=== PATIENT | female | born 1980 | race African-American/Black ===

== ENCOUNTER → 2020-12-29 17:50 | Outpatient (CLI) | payer BC, SELFPAY ==
--- NOTE | ~2020-12-29 | MM_ITS ---
EXAMINATION: MM screening cheryl BI w isabella HISTORY: Screening TECHNIQUE: Craniocaudal and mediolateral oblique 3-D tomosynthesis images were obtained and synthetic 2-D images were generated. CAD analysis was submitted and interpreted. COMPARISON: No prior mammogram is available for comparison at this institution. BREAST PARENCHYMAL COMPOSITION: The breasts are heterogeneously dense, which may obscure small masses . FINDINGS: There is no evidence of suspicious mass, calcification, or architectural distortion to sugg est malignancy in either breast. There has been no suspicious interval change. IMPRESSION: 1. No mammographic evidence of malignancy. 2. Recommend routine screening mammography in one year. BI-RADS Category 1: Negative Reviewed, dictated and finalized at location A. T MAN
== END ==
PROVIDERS: Visit Provider Nurse Practitioner
DX: Z12.31 Encounter for screening mammogram for malignant neoplasm of breast (principal)
CPT/HCPCS: 77063; 77067

== ENCOUNTER → 2022-12-04 12:47 | Outpatient (CLI) | payer BC, SELFPAY ==
--- NOTE | ~2022-12-04 | US_ITS ---
EXAMINATION: US pelvic complete DATE: 12/04/2022 13:06 INDICATION: Hypertrophy of uterus. TECHNIQUE: Multiple transabdominal sonographic images of the pelvis were obtained. COMPARISON: None. FINDINGS: The uterus measures 8.7 x 6.1 x 6.7 cm. There is no free fluid in the pelvis. The endometrial complex measures 8 mm in thickness. The right ovary measures 2.3 x 1.8 x 2.0 cm. The left ovary measures 2.9 x 1.6 x 2.0 cm. IMPRESSION: 1. Normal pelvis. Reviewed, dictated and finalized at location E. LEATHER SORTER IMPRESSION: 1. Normal pelvis.
--- NOTE | ~2022-12-04 | MM_ITS ---
EXAMINATION: MM screening cheryl BI w isabella HISTORY: Screening mammogram TECHNIQUE: Craniocaudal and mediolateral oblique 3-D tomosynthesis images were obtained and synthetic 2-D images were generated. CAD analysis was submitted and interpreted. COMPARISON: bilateral screening mammogram BREAST PARENCHYMAL COMPOSITION: There are scattered areas of fibroglandular density. FINDINGS: There is no evidence of suspicious mass, calcification, or architectural distortion to sugg est malignancy in either breast. There has been no suspicious interval change. IMPRESSION: 1. No mammographic evidence of malignancy. 2. Recommend routine screening mammography in one year. BI-RADS Category 1: Negative................... Reviewed, dictated and finalized at location A. RHOUSE ENGINEER
== END ==
PROVIDERS: PCP Nurse Practitioner; Visit Provider Nurse Practitioner
DX: Z12.31 Encounter for screening mammogram for malignant neoplasm of breast (principal); N85.2 Hypertrophy of uterus
CPT/HCPCS: 76856; 77063; 77067

== ENCOUNTER 2024-01-12 10:12 | Outpatient (CLI) | payer BC, SELFPAY ==
--- NOTE | ~2024-01-12 | US_ITS ---
EXAMINATION: US pelvic complete DATE: 01/12/2024 10:30 INDICATION: pelvic pain TECHNIQUE: Multiple transabdominal and endovaginal sonographic images of the pelvis were obtained. COMPARISON: 12/04/2022. FINDINGS: Uterus: 10.8 x 5.9 x 6.9 cm. 4.0 cm hyperechoic focus in the anterior uterine body. Endometrial compl ex measures 5 mm. Right Ovary: 2.6 x 2.6 x 2.1 cm. Vascular flow is present. No adnexal mass Left Ovary: 4.7 x 3.3 x 5.1 cm. Vascular flow is present. Stable, round 2.2 cm simple cyst. Adjacent, elongated 2.5 x 0.8 cm cyst/dominant follicle, also unchanged. There is no free fluid in the pelvis. IMPRESSION: 4.0 cm intramural fibroid. Reviewed, dictated and finalized at location K. ERCIAL MANAGEMENT ACCOUNTANT IMPRESSION: 4.0 cm intramural fibroid.
== END 2024-01-12 10:13 ==
LOC: MICIMG 10:13
PROVIDERS: PCP Nurse Practitioner; Visit Provider Nurse Practitioner
DX: D25.1 Intramural leiomyoma of uterus (principal)
CPT/HCPCS: 76856

== ENCOUNTER 2024-04-23 15:45 | Outpatient (CLI) | payer BC, SELFPAY ==
--- NOTE | ~2024-04-23 | MM_ITS ---
EXAMINATION: MM screening cheryl BI w isabella HISTORY: Screening TECHNIQUE: Craniocaudal and mediolateral oblique 3-D tomosynthesis images were obtained and synthetic 2-D images were generated. CAD analysis was submitted and interpreted. COMPARISON: Comparison to multiple prior studies sequentially, with oldest reviewed study dated 03/2011. BREAST PARENCHYMAL COMPOSITION: Not dense: There are scattered areas of fibroglandular density. FINDINGS: There is no evidence of suspicious mass, calcification, or architectural distortion to sugg est malignancy in either breast. There has been no suspicious interval change. IMPRESSION: 1. No mammographic evidence of malignancy. 2. Recommend routine screening mammography in one year. BI-RADS Category 1: Negative Reviewed, dictated and finalized at location B.
== END 2024-04-23 15:46 ==
LOC: MICIMG 15:47
PROVIDERS: PCP Nurse Practitioner; Visit Provider Nurse Practitioner
DX: Z12.31 Encounter for screening mammogram for malignant neoplasm of breast (principal)
CPT/HCPCS: 77063; 77067

== ENCOUNTER 2025-06-08 01:53 | Day surgery (SDC) | payer BC, SELFPAY ==
[2025-02-16 14:25] VITALS: BMI 26.6
[2025-05-20 09:23] VITALS: BMI 25.8
[2025-06-08 10:05] VITALS: BP 142/92; PULSE 87; RESP 20; TEMP 36.6; O2SAT 100; BMI 25.8
[2025-06-08 10:09] LABS: BEDSIDEPREGUCG Negative (Negative)
[2025-06-08] MEDS: LACTATED RINGERS 1,000 ML 150 ML IV CONT (10:16)
--- NOTE | 2025-06-08 10:43 | WPDANESEPPF ---
Anes - Initial Pre Proc Eval Procedure: Operation Date: 06/08/25 11:00 Proposed Procedures p Screening Colonoscopy - Higinio Mcgarry MD Date/Time: 06/08/25 10:43 Surgeon: Higinio Mcgarry MD Pre Op Diagnosis: Screening Patient Data Age: 45 Gender: F Height: 1.75 m Weight: 79.3 kg Last Vital Signs Temp 98 F 06/08/25 10:05 Pulse 87 06/08/25 10:05 Resp 20 06/08/25 10:05 BP 142/92 H 06/08/25 10:05 Pulse Ox 100 06/08/25 10:05 O2 Del Method Room Air 06/08/25 10:05 Allergies Allergy/AdvReac Type Severity Reaction Status Date / Time No Known Allergies Allergy Mild Verified 06/08/25 10:04 Home Medications ?Medication ?Instructions ?Recorded ?Confirmed ?Type No Home Medications 02/16/25 02/16/25 History Laboratory Tests 06/08/25 10:05 POC Urine HCG, Qual Negative (Negative) Patient hx anesthesia problems: none Family hx anesthesia problems: none Results Review: All pre-operative results and documents have been reviewed as part of the pre-operative evaluation. [facility] Social History Social History Smoking status: Never smoker Alcohol intake: never Drinks per week: 1 Substance use: never Substance use type: does not use Living arrangements: with family Spiritual care concerns: No Anes - Eval Final PreProcedure Day of Procedure 06/08/25 10:43 Patient weight: normal Heart: regular rate and rhythm Lungs: clear to auscultation Airway: Mallampati scale class II Neurological: alert and oriented Last oral intake: >/= 8 hours ASA classification: I Emergent: no Anesthetic plan: proceed Anesthesia type and monitoring: general GIVS and standard monitoring Results Review: All pre-operative results and documents have been reviewed as part of the pre-operative evaluation. Informed Consent: The patient's anesthetic plan and its attendant risks and benefits were discussed with the patient/family/POA. Questions were solicited and answers provided to the satisfaction of the patient/family/POA.
--- NOTE | 2025-06-08 11:06 | PM.IMHP ---
H&P: HPI History of Present Illness Date/Time: 06/08/25 11:06 Chief Complaint: Screening colonoscopy Narrative: This is the patient's first colonoscopy. There are no GI symptoms and there is no family history of colorectal cancer. Review of Systems Review of Systems: All systems reviewed & are unremarkable except as noted in HPI and below [facility] Social History Social History Smoking status: Never smoker Alcohol intake: never Drinks per week: 1 Substance use: never Substance use type: does not use Living arrangements: with family Spiritual care concerns: No Meds Home Medications and Allergies Home Medications ?Medication ?Instructions ?Recorded ?Confirmed ?Type No Home Medications 02/16/25 02/16/25 History Allergies Allergy/AdvReac Type Severity Reaction Status Date / Time No Known Allergies Allergy Mild Verified 06/08/25 10:04 Vital Signs Vital Signs - 24 hr 06/08/25 10:05 Temperature 98 F Pulse Rate 87 Respiratory Rate 20 Blood Pressure 142/92 H Pulse Oximetry 100 Oxygen Delivery Room Air Exam Const: General: cooperative and healthy appearing Resp: Effort & Inspection: normal respiratory effort and able to speak in complete sentences Auscultation: clear to auscultation bilaterally Cardio: Rate: regular rate Rhythm: regular rhythm GI: Inspection: normal to inspection GI Palp: No No hepatosplenomegaly present Auscultation: normal bowel sounds Rectal Exam: deferred Skin: General skin exam: normal color Psych: Appearance: grossly normal Mental Status: mental status grossly normal Assessment and Plan Assessment and plan (1) Encounter for screening colonoscopy: Code(s): Z12.11 - Encounter for screening for malignant neoplasm of colon Status: Acute Assessment and Plan: This is the patient's first colonoscopy. There are no GI symptoms and there is no family history of colorectal cancer.
[2025-06-08 11:26] VITALS: BP 113/69; PULSE 70; RESP 22; O2SAT 100
[2025-06-08 11:36] VITALS: BP 124/84; PULSE 57; RESP 22; O2SAT 100
[2025-06-08 11:46] VITALS: BP 129/85; PULSE 67; RESP 20; O2SAT 100
== END 2025-06-08 12:04 | disposition home or self-care (01) ==
PROVIDERS: Anesthesiology; PCP Nurse Practitioner; Referring Provider Nurse Practitioner; Visit Provider Internal Medicine Gastroenterology
PROC: 0DJD8ZZ Inspection of Lower Intestinal Tract, Via Natural or Artificial Opening Endoscopic (ICD-10-PCS; CPT 45378; principal; 2025-06-08 11:00)
DX: Z12.11 Encounter for screening for malignant neoplasm of colon (principal); K57.30 Diverticulosis of large intestine without perforation or abscess without bleeding
CPT/HCPCS: 45378; J2704; J7120

== ENCOUNTER 2025-06-08 15:43 | Outpatient (CLI) | payer BC, SELFPAY ==
--- NOTE | ~2025-06-08 | MM_ITS ---
EXAMINATION: MM screening cheryl BI w isabella HISTORY: Screening TECHNIQUE: Craniocaudal and mediolateral oblique 3-D tomosynthesis images were obtained and synthetic 2-D images were generated. CAD analysis was submitted and interpreted. COMPARISON: Comparison to multiple prior studies sequentially, with oldest reviewed study dated 03/2021. BREAST PARENCHYMAL COMPOSITION: Dense: The breasts are heterogeneously dense, which may obscure small masses FINDINGS: There is no evidence of suspicious mass, calcification, or architectural distortion to sugg est malignancy in either breast. There has been no suspicious interval change. IMPRESSION: 1. No mammographic evidence of malignancy. 2. Recommend routine screening mammography in one year. BI-RADS Category 1: Negative Reviewed, dictated and finalized at location B.
== END 2025-06-08 15:44 | disposition home or self-care (01) ==
LOC: MICIMG 15:43
PROVIDERS: PCP Nurse Practitioner; Visit Provider Nurse Practitioner
DX: Z12.31 Encounter for screening mammogram for malignant neoplasm of breast (principal)
CPT/HCPCS: 77063; 77067

== ENCOUNTER 2025-07-12 14:47 | Emergency (ER) | payer BC, SELFPAY ==
[2025-07-12 14:48] VITALS: BP 138/86; PULSE 86; RESP 16; TEMP 36.7; O2SAT 98
--- NOTE | 2025-07-12 15:19 | ED_ITS ---
HPI - Female Genitourinary General Chief complaint: Vaginal Bleeding Stated complaint: vag bleed Time Seen by Provider: 07/12/25 15:07 History of Present Illness HPI Narrative: This is a 45 yo female who presents to the ED from her Ob's office for vaginal bleeding for 3 weeks. Patient states she has been passing quarter sized clots. She was seen by her ob today who scheduled her for a biopsy but recommended she come to the ED to check her hemoglobin. PAtient states she has been getting light headed and weak at work and gets short of breath with exertion. No new medications. Her last normal menstural period was in April and lasted approximatel 8 days. Related Data Allergies Allergy/AdvReac Type Severity Reaction Status Date / Time No Known Allergies Allergy Mild Verified 07/12/25 14:54 Review of Systems 2 Review of Systems: Gen.: Denies fevers or chills Eyes: Denies eye pain or visual change ENT: Denies congestion Respiratory: Denies shortness of breath or cough CV: Denies chest pain or palpitations GI: Denies abdominal pain nausea, emesis or diarrhea as per HPI. Musculoskeletal: Denies back pain or muscle pain Neuro: Denies numbness, tingling, weakness or focal weakness Skin: Denies rash Except as documented, all other systems reviewed and negative [facility] Social History Social History Smoking status: Never smoker Alcohol intake: never Drinks per week: 1 Substance use: never Substance use type: does not use Living arrangements: with family Spiritual care concerns: No Exam 2 Narrative: APPEARANCE: No acute distress, nontoxic, resting in bed EYES: EOMI HEENT: Normocephalic, atraumatic, OMM RESPIRATORY: No respiratory distress Clear to auscultation bilaterally with no rhonchi wheezing or rales. CARDIOVASCULAR: Regular rate and rhythm without murmurs rubs or gallops. ABDOMINAL: Soft, nontender, nondistended, no rebound or guarding MUSCULOSKELETAL: Moves all extremities. No clubbing, cyanosis or edema. NEURO: Awake and alert. Following commands, speech normal, no focal deficits SKIN:: Warm, dry. No rashes lesions or abrasions PSYCHIATRIC: Normal affect/mood, Course Vital Signs Vital signs: Vital Signs Temperature 98.1 F 07/12/25 14:48 Pulse Rate 86 07/12/25 14:48 Respiratory Rate 16 07/12/25 14:48 Blood Pressure 138/86 07/12/25 14:48 Pulse Oximetry 98 07/12/25 14:48 Oxygen Delivery Room Air 07/12/25 14:48 Temperature 98.1 F 07/12/25 14:48 Pulse Rate 78 07/12/25 16:00 Respiratory Rate 16 07/12/25 16:00 Blood Pressure 129/82 07/12/25 16:00 Pulse Oximetry 100 07/12/25 16:00 Oxygen Delivery Room Air 07/12/25 14:48 MDM - Female Genitourinary MDM Narrative Medical decision making narrative: 45-year-old female presented to the ED for vaginal bleeding and lightheadedness with dyspnea on exertion. Patient seen by materials associate today there was concerns for severe anemia and so she was sent in. She did have conjunctival pallor in the mucous membrane pallor. Pelvic exam performed which did reveal bleeding within the vaginal vault. Hgb 8.1. I did discuss the case with Dr. Carolina, Multiplex Operator, recommends starting patient on TXA PO and will follow up in office next week as scheduled. PAtient was agreeable to this plna. Given strict return precautions. Differential Diagnosis Differential diagnosis: Likely other (abnormal uterine bleeding, anemia) Lab Data Attestation: I reviewed the patient's lab results. 07/12/25 15:22 07/12/25 15:22 Labs: Lab Results 07/12/25 07/12/25 Range/Units 15:22 16:00 WBC 5.1 (4.5-10.0) K/mm3 RBC 3.84 L (4.2-5.4) M/mm3 Hgb 8.1 L (12.0-15.0) g/dL Hct 28.2 L (37.0-47.0) % MCV 73.4 L (80-100) fl MCH 21.1 L (26-34) pg MCHC 28.7 L (32-36) g/dl RDW 17.2 H (11.5-14.5) % Plt Count 458 H (150-375) k/mm3 MPV 8.9 (7.4-10.4) fl Immature Gran % (Auto) 0.2 (0-0.5) % Neut % (Auto) 56.7 (45.5-73.1) % Lymph % (Auto) 35.2 (18.3-44.2) % Emanuel % (Auto) 6.9 (2.6-8.5) % Eos % (Auto) 0.6 (0-4.4) % Baso % (Auto) 0.4 (0.2-1.2) % Lymph # (Auto) 1.79 (0.9-3.2) K/mm3 Emanuel # (Auto) 0.4 (0.1-0.6) K/mm3 Eos # (Auto) 0.0 (0-0.3) K/mm3 Baso # (Auto) 0.0 (0.0-0.1) K/mm3 Abs Immat Gran (auto) 0.01 (0.00-0.031) K/mm3 Absolute Neuts (auto) 2.9 (1.3-6.7) K/mm3 Absolute Nucleated RBC 0.000 (0.0-0.012) K/mm3 Band Neutrophils % Not Reportable Nucleated RBC % 0.0 (0.0-0.2) % Platelet Estimate Increased (Adequate) Hypochromasia 1+ Microcytosis 1+ (NORMAL) Target Cells 1+ Ovalocytes 1+ Schistocytes None seen PT 13.4 (11.1-14.7) Seconds INR 1.0 Sodium 140 (137-145) mmol/L Potassium 4.0 (3.4-5.0) mmol/L Chloride 111 H (98-107) mmol/L Carbon Dioxide 22 (22-30) mmol/L Anion Gap 7 (4-12) mmol/L BUN 8 (7-17) mg/dL Creatinine 0.59 L (0.7-1.0) mg/dL Estim Creat Clear Calc 105 ml/min Estimated GFR > 60 (59 - ) Glucose 116 H (65-110) mg/dL Calcium 10.1 (8.4-10.2) mg/dL POC Urine HCG, Qual Negative (Negative) Discharge Plan Discharge Clinical Impression: Vaginal bleeding Anemia Qualifiers: Anemia type: unspecified type Qualified Code(s): D64.9 - Anemia, unspecified Patient Disposition: Home Condition: Stable Instructions: Antibiotic Form, Abnormal (Dysfunctional) Uterine Bleeding (ED) Additional Instructions: Take TXA as prescribed. Follow-up with your OBGYN on Friday as scheduled. Return to the ED for any new or worsening symptoms. Patient Language: Maori Prescriptions: New tranexamic acid 650 mg tablet 650 mg PO Q8H Qty: 15 0RF Follow-up/Referrals: Pari Carolina MD [Physician, FLOW FLOOR ATTENDANT]
[2025-07-12 15:28] LABS: Hematocrit 28.2 % (37.0-47.0); Hemoglobin 8.1 g/dL (12.0-15.0); Immature Granulocyte Percent A 0.2 % (0-0.5); Lymphocytes Absolute Auto 1.79 K/mm3 (0.9-3.2); Mean Corpuscular HGB Conc 28.7 g/dl (32-36); Mean Corpuscular Hemoglobin 21.1 pg (26-34); Mean Corpuscular Volume 73.4 fl (80-100); Nucleated Red Blood Cells Absolute Auto 0.000 K/mm3 (0.0-0.012); Nucleated Red Blood Cells Perc 0.0 % (0.0-0.2); Platelet Count Result 458 k/mm3 (150-375); Red Blood Count 3.84 M/mm3 (4.2-5.4); White Blood Count 5.1 K/mm3 (4.5-10.0)
[2025-07-12 15:46] LABS: INR 1.0; Prothrombin Time 13.4 Seconds (11.1-14.7)
[2025-07-12 15:47] LABS: Anion Gap 7 mmol/L (4-12); Blood Urea Nitrogen 8 mg/dL (7-17); Calcium 10.1 mg/dL (8.4-10.2); Carbon Dioxide 22 mmol/L (22-30); Chloride 111 mmol/L (98-107); Estimated CRCL calculation 105 ml/min; Estimated Glomerular Filt Rate > 60; Glucose 116 mg/dL (65-110); Potassium 4.0 mmol/L (3.4-5.0); Sodium 140 mmol/L (137-145)
[2025-07-12 15:48] LABS: Hypochromasia 1+; Microcytosis 1+ (NORMAL); Ovalocytes 1+; Schistocytes None Seen; Target Cells 1+
[2025-07-12 16:00] VITALS: BP 129/82; PULSE 78; RESP 16; O2SAT 100
[2025-07-12 16:43] LABS: BEDSIDEPREGUCG Negative (Negative)
== END 2025-07-12 17:58 | disposition home or self-care (01) ==
PROVIDERS: Emergency Provider Student in an Organized Health Care Education/Training Program
DX: N93.9 Abnormal uterine and vaginal bleeding, unspecified (principal); D64.9 Anemia, unspecified
CPT/HCPCS: 36415; 80048; 81025; 85025; 85610; 99283

== ENCOUNTER 2025-07-18 00:46 | Day surgery (SDC) | payer BC, SELFPAY ==
--- NOTE | 2025-07-15 07:43 | PC.NURSE ---
Report to the Outpatient Waiting Room, entrance under the green pavilion located off [facility], at time __8:30 am on date _07/18/25 . Planned Procedure Time: _10:30 am .? Time changes happen often and if your time is changed the preop area will call you the afternoon before. - You and your visitor will be asked to self-screen and do not enter if you have any COVID symptoms. Please call surgeon if you need to reschedule. - A mask is optional within the hospital at this time. Patients may have clear liquids (water, carbonated beverages, clear teas, apple juice) until 3 hours prior to surgery( 7:30 am) with a maximum of 20 ounces. - No food from midnight until time of surgery and no smoking, or chewing tobacco (or any form of nicotine). No chewing gum, candy or mints. - Take only the following medications with a SIP of water on the morning of surgery: NONE DO NOT STOP ANY OF YOUR OTHER PRESCRIPTION MEDICATIONS PRIOR TO SURGERY EXCEPT THE FOLLOWING Hold all vitamins and supplements for 3 days per anesthesiologist. Medications to discontinue per physician NONE Please no make-up, nail frisian, hairspray, perfume, deodorant, or body powder the day of surgery.? No jewelry (including any body piercings) or valuables the day of surgery, leave them at home.? Please take a shower or bath the night before, or the morning of, surgery with an antibacterial soap.? Wear comfortable, loose fitting clothing.? Children are encouraged to wear pajamas. - Jewelry must be removed prior to entering the operating room.? Rings and piercings that are not removed may be cut off. - The hospital will not accept responsibility for valuables.? - Please leave all valuables, including medications, at home the day of surgery. If you are going home after surgery, a licensed motorcycle delivery driver must drive you home.? - NO public transportation without another adult if you receive anesthesia. - We recommend that an adult stay with you for 24 hours following discharge. - We also recommend that you do not drive, make important decision, drink alcoholic beverages, or take any drugs that were not prescribed by your health care provider for at least 24 hours after your discharge time. For Pediatric surgeries, we recommend two adults accompany the child home. Follow any additional instructions given to you from your surgeon. Telephone instructions given to ___patient and asked if any additional questions and then verbalized understanding. Patient advised to call surgeon office or pre surgery nurse liaison [phone] if any additional questions.
[2025-07-15 07:51] VITALS: BMI 25.8
--- NOTE | 2025-07-18 07:59 | P.HP_ITS ---
History of Present Illness History of Present Illness Consent: Risks, benefits, and alternatives have been discussed and questions answered. Patient agrees to proceed with procedure. Chief complaint: menorrhagia, anemia Narrative: Khushbu Garland is a 45 year old female with prolonged and heavy bleeding. It was recommended to undergo D&C hysteroscopy. Risks of infection, bleeding, perforation, and possible pathology are discussed. Patient voices understanding and agrees to proceed. Review of Systems Review of Systems: not repeated day of surgery; patient states no changes in status PMFSH Past Medical History Medical History (Updated 07/18/25 @ 09:24 by Pari Carolina MD) History of spontaneous No D&C (normal spontaneous vaginal delivery) X3 Surgical History Surgical History (Updated 07/18/25 @ 09:24 by Pari Carolina MD) History of elective Surgical History of hysteroscopy 01/16 benign findings Social History Social History Smoking status: Never smoker Alcohol intake: current Drinks per week: 1 Substance use: never Substance use type: does not use Living arrangements: with family Spiritual care concerns: No Meds Home Medications and Allergies Home Medications ?Medication ?Instructions ?Recorded ?Confirmed ?Type tranexamic acid 650 mg tablet 650 mg PO Q8H #15 tabs 0 07/12/25 07/18/25 Rx Allergies Allergy/AdvReac Type Severity Reaction Status Date / Time No Known Allergies Allergy Mild Verified 07/15/25 07:41 Exam Const: General: healthy appearing and alert Orientation/consciousness: patient oriented x3 Resp: Effort & Inspection: normal respiratory effort GI: GI Palp: Yes Soft to palpation, No Tenderness to palpation present (GI) and No Palpable mass present : External Female Exam: normal external appearance Speculum Exam - Vagina: normal appearance of the vagina and normal vaginal discharge Speculum Exam - Cervix: normal appearance of the cervix Bimanual exam- vagina & uterus: uterine size normal and consistency normal Bimanual Exam- Adnexa, other: normal adnexae and No adnexal tenderness Neuro: General: patient oriented x3 Assessment and Plan Assessment and plan (1) Menorrhagia: Code(s): N92.0 - Excessive and frequent menstruation with regular cycle Status: Acute Assessment and Plan: Plan to proceed with D&C hysteroscopy
--- NOTE | 2025-07-18 07:59 | WPDHPUPDATE1 ---
History and Physical Update Update Date/Time: 07/18/25 07:59 History and Physical has been reviewed, including an updated exam of the patient. There are NO changes in the patient's condition. Risks, benefits, and alternatives have been discussed and questions answered. Patient agrees to proceed with procedure.
[2025-07-18 08:45] VITALS: BP 123/81; PULSE 74; RESP 16; TEMP 36.3; O2SAT 100
[2025-07-18] MEDS: ACETAMINOPHEN 500 MG TABLET 1000 MG PO (09:13)
[2025-07-18 09:33] LABS: BEDSIDEPREGUCG Negative (Negative)
--- NOTE | 2025-07-18 10:02 | P.PNAN_ITS ---
Anes - Initial Pre Proc Eval Procedure: Operation Date: 07/18/25 10:30 Proposed Procedures p Hysteroscopy Dilation and Curettage - Pari Carolina MD Date/Time: 07/18/25 10:02 Surgeon: Pari Carolina MD Pre Op Diagnosis: menorrhagia, anemia Patient Data Age: 45 Gender: F Height: 1.75 m Weight: 78.6 kg Last Vital Signs Temp 36.3 C L 07/18/25 08:45 Pulse 74 07/18/25 08:45 Resp 16 07/18/25 08:45 BP 123/81 07/18/25 08:45 Pulse Ox 100 07/18/25 08:45 O2 Del Method Room Air 07/18/25 08:45 Allergies Allergy/AdvReac Type Severity Reaction Status Date / Time No Known Allergies Allergy Mild Verified 07/15/25 07:41 Home Medications ?Medication ?Instructions ?Recorded ?Confirmed ?Type tranexamic acid 650 mg tablet 650 mg PO Q8H #15 tabs 0 07/12/25 07/18/25 Rx Laboratory Tests 07/18/25 08:45 POC Urine HCG, Qual Negative (Negative) Patient hx anesthesia problems: none Family hx anesthesia problems: none Results Review: All pre-operative results and documents have been reviewed as part of the pre- operative evaluation. PMFSH Past Medical History Medical History History of spontaneous No D&C (normal spontaneous vaginal delivery) X3 Surgical History Surgical History History of elective Surgical History of hysteroscopy 01/16 benign findings Social History Social History Smoking status: Never smoker Alcohol intake: current Drinks per week: 1 Substance use: never Substance use type: does not use Living arrangements: with family Spiritual care concerns: No Anes - Eval Final PreProcedure Day of Procedure 07/18/25 10:02 Patient weight: normal Heart: regular rate and rhythm Lungs: clear to auscultation Airway: Mallampati scale class III Neurological: alert and oriented Last oral intake: >/= 8 hours ASA classification: II Emergent: no Anesthetic plan: proceed Anesthesia type and monitoring: general GIVS and standard monitoring Results Review: All pre-operative results and documents have been reviewed as part of the pre- operative evaluation. Informed Consent: The patient's anesthetic plan and its attendant risks and benefits were discussed with the patient/family/POA. Questions were solicited and answers provided to the satisfaction of the patient/family/POA.
[2025-07-18] MEDS: KETOROLAC 30 MG/ML VIAL (*BKC) IV PUSH (10:18)
--- NOTE | 2025-07-18 10:19 | S_PTH ---
PATIENT: Khushbu Garland LOC: [facility] U#:[id number] AGE/SX: 45/F ROOM: RE07/18/[address]: Pari Carolina MD : 1980 BED: DIS: 07/18/2025 SPEC #: [id number] RECD: 07/18/25 11:58 STATUS: MARGOTH REQ #: [id number] PATRICIA: 07/18/25 10:[address]: Pari Carolina DEPT: [facility] Surgical RECD BY: Kate Phan ENTERED: 07/18/25 11:59 SP TYPE: Surgical OTHR DR: Karon Valencia, SYNCHRONIZER Tissues: A - Endometrial Curettings Procedures: Hematoxylin and Eosin Stain Gross and Microscopic Level 4
--- NOTE | 2025-07-18 10:22 | P.OP_ITS ---
Procedure Note - Detailed Date of Procedure 07/18/25 Pre-op Diagnosis menorrhagia, anemia Post-op Diagnosis Same Procedure Performed D&C hysteroscopy Surgeon Pari Carolina MD Anesthesia MAC Findings Uterus sounds to 8cm and appears grossly Description of Procedure The patient was taken to the operating room and placed under anesthesia in dorsal lithotomy position. She was prepped and draped in the usual sterile fashion. Dowling speculum was placed in the vagina and cervix grasped on the anterior lip with a tenaculum. Uterus is sounded to 8cm. The diagnostic hysteroscope was placed and with no abnormalities noted the hysteroscope was removed. The sharp curette was used to curette the endometrium until a good uterine cry was noted in all areas. All instruments are removed. Sponge, needle, and instrument counts are correct per the OR staff. The patient was awakened from anesthesia and taken to recovery in stable condition. Estimated Blood Loss 5 Drains No Packing No Pathology Yes (Endometrial curettings) Complications No immediate complications Condition Stable Disposition PACU
[2025-07-18 10:25] VITALS: BP 129/83; PULSE 69; RESP 14; O2SAT 100
[2025-07-18] MEDS: LACTATED RINGERS 1,000 ML 30 ML IV CONT (10:25)
[2025-07-18 10:40] VITALS: O2SAT 100
[2025-07-18 10:55] VITALS: BP 127/74; PULSE 69; RESP 16; O2SAT 100
[2025-07-18 11:25] VITALS: BP 137/79; PULSE 57; RESP 16
--- NOTE | 2025-07-18 11:50 | SUR.PHASEII ---
1150: PATIENT READY FOR DC. WAITING ON RIDE.
== END 2025-07-18 12:03 | disposition home or self-care (01) ==
PROVIDERS: PCP Nurse Practitioner; Visit Provider Obstetrics & Gynecology Gynecology
PROC: 0U5B8ZZ Destruction of Endometrium, Via Natural or Artificial Opening Endoscopic (ICD-10-PCS; CPT 58563; principal; 2025-07-18 10:30)
DX: N85.8 Other specified noninflammatory disorders of uterus (principal); Z98.890 Other specified postprocedural states
CPT/HCPCS: 58558; 88305; A9270; J1100; J1885; J2003; J2250; J2405; J2704; J3010; J7120